=== PATIENT | male | born 1975 | race Caucasian/White ===

== ENCOUNTER 2017-07-25 09:23 | Observation (INO) | payer OTHER ==
[~2017-07-25] VITALS: Ht 177.8 cm; Wt 70.9 kg
[2017-07-25] MEDS ORDERED: TICA90TA PO (10:18)
[2017-07-25] MEDS ORDERED: ASPI-496 PO (10:18)
[2017-07-25] MEDS ORDERED: ATOR-2 PO (10:18)
[2017-07-25] MEDS ORDERED: METO25TA35 PO (10:18)
[2017-07-25 10:21] LABS: HEMATOCRIT 45.9 % (39.2-51.8); HEMOGLOBIN 15.6 g/dL (13.7-18.0); WHITE BLOOD COUNT 7.7 x10^3/uL (3.4-10)
[2017-07-25] MEDS ORDERED: MORPHINE SULFATE 4 MG/ML, 1ML IVPush ONE (10:30)
[2017-07-25 10:40] LABS: ASPARTATE AMINO TRANSFERASE 28 U/L (15-37); BLOOD UREA NITROGEN 9 mg/dL (7-18)
[2017-07-25] MEDS ORDERED: MORPHINE SULFATE 4 MG/ML, 1ML ONE ×2 (10:43→11:39)
[2017-07-25 10:47] LABS: IS PT STATUS REG ER OR PRE ER? YES
[2017-07-25] MEDS: morphine SULFATE 10 MG/ML, 1ML IVPush PRN ×4 (11:41→23:04)
[2017-07-25 12:29] LABS: IS PT STATUS REG ER OR PRE ER? YES
[2017-07-25] MEDS: TICAGRELOR 90 MG TABLET PO SCH ×2 (12:41→21:00)
[2017-07-25] MEDS ORDERED: HEPARIN 5,000 UNITS/ML, 1ML ONE (12:50)
[2017-07-25] MEDS ORDERED: HEPARIN 25,000 UNITS/500ML PMX 500 ML ONE (12:50)
[2017-07-25] MEDS: HEPARIN 25,000 UNITS/500ML PMX 500 ML IV PRN ×2 (12:57→19:16)
[2017-07-25] MEDS ORDERED: HEPARIN 5,000 UNITS/ML, 1ML IV PRN (13:00)
[2017-07-25] MEDS ORDERED: HEPARIN 5,000 UNITS/ML, 1ML IV ONE (13:00)
[2017-07-25] MEDS ORDERED: morphine SULFATE 10 MG/ML, 1ML ONE ×2 (14:28→19:44)
[2017-07-25 18:43] LABS: IS PT STATUS REG ER OR PRE ER? YES
[2017-07-25 20:41] VITALS: BP 138/89
[2017-07-25] MEDS ORDERED: ATORVASTATIN 80 MG TABLET PO SCH (21:00)
[2017-07-26 01:51] VITALS: BP 109/69
[2017-07-26] MEDS: morphine SULFATE 10 MG/ML, 1ML IVPush PRN ×2 (05:19→08:55)
[2017-07-26 05:34] VITALS: BP 103/68
[2017-07-26 05:39] LABS: HEMATOCRIT 44.3 % (39.2-51.8)
[2017-07-26 05:51] LABS: BLOOD UREA NITROGEN 13 mg/dL (7-18)
[2017-07-26 08:27] VITALS: BP 128/87
[2017-07-26] MEDS: TICAGRELOR 90 MG TABLET PO SCH (08:29)
[2017-07-26] MEDS ORDERED: METOPROLOL TARTRATE 25 MG TABLET PO SCH (09:00)
[2017-07-26] MEDS ORDERED: ASPIRIN 81 MG TABLET EC PO SCH (09:00)
[2017-07-26] MEDS ORDERED: MIDAZOLAM 1 MG/ML, 5ML ONE (12:42)
[2017-07-26] MEDS ORDERED: FENTANYL PF 100 MCG/2ML ONE (12:42)
[2017-07-26] MEDS ORDERED: TICAGRELOR 90 MG TABLET ONE (12:43)
[2017-07-26] MEDS ORDERED: LIDOCAINE 2%, 20ML ONE (12:43)
[2017-07-26] MEDS ORDERED: BIVALIRUDIN 250 MG ONE (12:43)
[2017-07-26] MEDS ORDERED: VERAPAMIL 2.5 MG/ML, 2ML ONE (12:43)
[2017-07-26] MEDS ORDERED: HEPARIN 1,000 UNITS/ML, 10ML ONE (12:43)
[2017-07-26] MEDS ORDERED: DIPHENHYDRAMINE 50 MG/ML, 1ML ONE (13:29)
[2017-07-26] MEDS ORDERED: SODIUM CHLORIDE 0.9% 1,000 ML IV SCH (13:59)
[2017-07-26 14:28] VITALS: BP 115/78
== END 2017-07-26 19:01 | disposition home or self-care (01) ==
LOC: ED 10:42 → EDIP 10:43 → INTOOBSV 10:43 → ED 10:45 → 5SO 20:38
PROVIDERS: ADMIT Internal Medicine; ATTEND Internal Medicine
DX: I25.110 Atherosclerotic heart disease of native coronary artery with unstable angina pectoris (principal); E78.5 Hyperlipidemia, unspecified; F41.9 Anxiety disorder, unspecified; I25.2 Old myocardial infarction; Z86.73 Personal history of transient ischemic attack (TIA), and cerebral infarction without residual deficits; Z95.5 Presence of coronary angioplasty implant and graft; Z87.891 Personal history of nicotine dependence; I10 Essential (primary) hypertension; Z82.49 Family history of ischemic heart disease and other diseases of the circulatory system; Z82.3 Family history of stroke; F12.90 Cannabis use, unspecified, uncomplicated
CPT/HCPCS: 36415; 71010; 80048; 80053; 83880; 84443; 84484; 85025; 85520; 93005; 93306; 93458; 93571; 96374; 96375; 96376; 99156; 99285; C1769; C1887; C1894; G0378; J1644; J2250; J2270; J3010; J3490; Q9967; J0583; J1200

== ENCOUNTER 2018-09-07 09:08 | Observation (INO) | payer OTHER ==
[~2018-09-07] VITALS: Ht 177.8 cm; Wt 69.9 kg
[~2018-09-07 09:08] MED LIST: ASPI-496 PO; ATOR-2 PO; METO25TA35 PO; TICA90TA PO
[2018-09-07] MEDS ORDERED: SODIUM CHLORIDE FLUSH 10ML SYR IVF ONE (10:00)
[2018-09-07] MEDS ORDERED: LORazepam 2 MG/ML, 1ML IVPush ONE (10:00)
[2018-09-07] MEDS ORDERED: FLUO20TA25 PO (10:06)
[2018-09-07] MEDS ORDERED: LORazepam 2 MG/ML, 1ML ONE (10:08)
[2018-09-07 10:31] LABS: BASOPHILS # (AUTO) 0.03 x10^3/uL (0-0.1); BASOPHILS % (AUTO) 0 % (0-1); EOSINOPHILS # (AUTO) 0.05 x10^3/uL (0-0.4); EOSINOPHILS % (AUTO) 1 % (1-7); LYMPHOCYTES # (AUTO) 1.46 x10^3/uL (1-3.4); LYMPHOCYTES % (AUTO) 19 % (22-44); MD NO; MEAN CORPUSCULAR HEMOGLOBIN 31.9 pg (27.5-34.5); MEAN CORPUSCULAR HGB CONC 33.4 g/dL (33.2-36.2); MEAN CORPUSCULAR VOLUME 95.6 fL (81-97); MEAN PLATELET VOLUME 8.5 fL (7.4-10.4); MONOCYTES # (AUTO) 0.57 x10^3/uL (0.2-0.8); MONOCYTES % (AUTO) 8 % (2-9); NEUTROPHILS # (AUTO) 5.51 x10^3/uL (1.8-6.8); NEUTROPHILS % (AUTO) 72 % (42-75); PLATELET COUNT 302 x10^3/uL (130-400); RED BLOOD COUNT 4.86 x10^6/uL (4.38-5.82); RED CELL DISTRIBUTION WIDTH 13.5 % (9.4-14.8)
[2018-09-07 10:36] LABS: ALBUMIN 4.5 g/dL (3.4-5.0); ANION GAP 8 mmol/L (5-15); CALCIUM 9.3 mg/dL (8.5-10.1); CHLORIDE 109 mmol/L (98-107); CREATININE 0.88 mg/dL (0.7-1.3)
[2018-09-07 10:40] LABS: TROPONIN I < 0.015 ng/mL (0.000-0.045)
[2018-09-07 12:06] VITALS: BP 131/90
[2018-09-07] MEDS: morphine SULFATE 10 MG/ML, 1ML IVPush PRN ×2 (12:57→16:13)
[2018-09-07] MEDS ORDERED: BISACODYL 10 MG SUPP PR PRN (13:00)
[2018-09-07] MEDS ORDERED: ONDANSETRON 2MG/ML, 2ML IVPush PRN (13:00)
[2018-09-07] MEDS ORDERED: ACETAMINOPHEN 325 MG TABLET PO PRN (13:00)
[2018-09-07] MEDS ORDERED: LABETALOL 5MG/ML, 20ML IVPush PRN (13:00)
[2018-09-07] MEDS ORDERED: PROMETHAZINE 25 MG/ML, 1ML IM PRN (13:00)
[2018-09-07] MEDS ORDERED: POLYETHYLENE GLYCOL 17 GM PACKET PO PRN (13:00)
[2018-09-07] MEDS ORDERED: DOCUSATE 100 MG CAPSULE PO PRN (13:00)
[2018-09-07] MEDS ORDERED: ONDANSETRON ODT 4 MG PO PRN (13:00)
[2018-09-07] MEDS: HEPARIN 5,000 UNITS/ML, 1ML SQ SCH ×2 (13:00→20:48)
[2018-09-07] MEDS ORDERED: hydrALAzine 20 MG/ML, 1ML IVPush PRN (13:00)
[2018-09-07 13:39] LABS: FREE T4 (FREE THYROXINE) 1.19 ng/dL (0.76-1.46); THYROID STIMULATING HORMONE 0.876 mIU/L (0.358-3.740)
[2018-09-07] MEDS: FLUOXETINE HCL 20 MG CAPSULE PO SCH (13:53)
[2018-09-07] MEDS: METOPROLOL TARTRATE 25 MG TABLET PO SCH ×2 (13:53→20:48)
[2018-09-07] MEDS: OXYcodone IR 5MG TABLET PO PRN ×2 (13:58→20:48)
[2018-09-07 15:18] LABS: HEMOGLOBIN A1C 5.9 % (4.2-6.3)
[2018-09-07 15:25] VITALS: BP 131/90
[2018-09-07 16:58] LABS: TROPONIN I < 0.015 ng/mL (0.000-0.045)
[2018-09-07 18:44] VITALS: BP 128/87
[2018-09-07] MEDS: FAMOTIDINE 20 MG TABLET PO SCH (20:48)
[2018-09-07] MEDS: TICAGRELOR 90 MG TABLET PO SCH (20:48)
[2018-09-07] MEDS ORDERED: PANT20TA3 PO (20:59)
[2018-09-07] MEDS ORDERED: ATORVASTATIN 80 MG TABLET PO SCH (21:00)
[2018-09-07 22:37] LABS: TROPONIN I < 0.015 ng/mL (0.000-0.045)
[2018-09-07] MEDS ORDERED: SODIUM CHLORIDE 0.9% 1,000 ML IV SCH (23:00)
[2018-09-08 00:35] VITALS: BP 97/66
[2018-09-08] MEDS: HEPARIN 5,000 UNITS/ML, 1ML SQ SCH ×2 (05:00→10:56)
[2018-09-08 05:32] LABS: BASOPHILS # (AUTO) 0.04 x10^3/uL (0-0.1); BASOPHILS % (AUTO) 0 % (0-1); EOSINOPHILS # (AUTO) 0.18 x10^3/uL (0-0.4); EOSINOPHILS % (AUTO) 2 % (1-7); LYMPHOCYTES # (AUTO) 3.04 x10^3/uL (1-3.4); LYMPHOCYTES % (AUTO) 34 % (22-44); MD NO; MEAN CORPUSCULAR HEMOGLOBIN 32.4 pg (27.5-34.5); MEAN CORPUSCULAR HGB CONC 33.5 g/dL (33.2-36.2); MEAN CORPUSCULAR VOLUME 96.5 fL (81-97); MEAN PLATELET VOLUME 8.7 fL (7.4-10.4); MONOCYTES # (AUTO) 0.76 x10^3/uL (0.2-0.8); MONOCYTES % (AUTO) 8 % (2-9); NEUTROPHILS % (AUTO) 55 % (42-75); PLATELET COUNT 292 x10^3/uL (130-400); RED BLOOD COUNT 4.84 x10^6/uL (4.38-5.82); RED CELL DISTRIBUTION WIDTH 13.3 % (9.4-14.8)
[2018-09-08 05:42] LABS: CHLORIDE 108 mmol/L (98-107)
[2018-09-08 05:51] LABS: ALANINE AMINOTRANSFERASE 44 U/L (12-78); ALKALINE PHOSPHATASE 73 U/L (45-117); ANION GAP 7 mmol/L (5-15); BILIRUBIN,TOTAL 0.8 mg/dL (0.2-1.0); CALCIUM 9.3 mg/dL (8.5-10.1); CHOL/HDL RATIO 4.5; CHOLESTEROL, TOTAL 171 mg/dL (140-239); CREATININE 1.03 mg/dL (0.7-1.3); HDL CHOL % 22 % (26-37); HDL CHOLESTEROL (DIRECT) 38 mg/dL (40-60); LDL CHOLESTEROL,CALCULATED 105 mg/dL (54-169); LDL/HDL RATIO 2.8 (0.5-3.0); TOTAL PROTEIN 7.7 g/dL (6.4-8.2); TRIGLYCERIDES 141 mg/dL (50-200); VLDL CHOLESTEROL 28 mg/dL (0-25)
[2018-09-08] MEDS ORDERED: ASPIRIN 325 MG TABLET EC PO SCH (06:00)
[2018-09-08] MEDS ORDERED: METO-282 PO (06:24)
[2018-09-08 07:16] VITALS: BP 116/77
[2018-09-08] MEDS: OXYcodone IR 5MG TABLET PO PRN (07:59)
[2018-09-08] MEDS: FAMOTIDINE 20 MG TABLET PO SCH (08:00)
[2018-09-08] MEDS: TICAGRELOR 90 MG TABLET PO SCH (08:00)
[2018-09-08] MEDS: FLUOXETINE HCL 20 MG CAPSULE PO SCH (08:00)
[2018-09-08] MEDS: METOPROLOL TARTRATE 25 MG TABLET PO SCH (08:00)
[2018-09-08] MEDS ORDERED: CYCL5TAB PO (11:49)
[2018-09-08] MEDS ORDERED: PANT20TA3 PO (11:49)
[2018-09-08] MEDS ORDERED: ACET-1600 PO (11:49)
== END 2018-09-08 14:40 | disposition home or self-care (01) ==
LOC: ED 10:34 → EDIP 10:40 → 5SO 11:58
PROVIDERS: ADMIT Internal Medicine; ATTEND Internal Medicine
DX: R07.89 Other chest pain (principal); E78.5 Hyperlipidemia, unspecified; F32.9 Major depressive disorder, single episode, unspecified; F41.9 Anxiety disorder, unspecified; I10 Essential (primary) hypertension; I25.10 Atherosclerotic heart disease of native coronary artery without angina pectoris; I25.2 Old myocardial infarction; Z79.82 Long term (current) use of aspirin; Z86.73 Personal history of transient ischemic attack (TIA), and cerebral infarction without residual deficits; Z79.899 Other long term (current) drug therapy; Z95.5 Presence of coronary angioplasty implant and graft; Z88.8 Allergy status to other drugs, medicaments and biological substances
CPT/HCPCS: 36415; 71045; 78452; 80048; 80053; 80061; 82040; 83036; 83735; 84439; 84443; 84484; 85025; 93005; 93017; 96374; 96375; 96376; 99285; A9502; C9898; G0378; J2060; J2270; J7030